=== PATIENT | female | born 1945 | race Caucasian/White ===

== ENCOUNTER 2023-12-08 10:32 | Emergency (ER) | payer BC, MEDICAID ==
[~2023-12-08] VITALS: Ht 152.4 cm; Wt 48.0 kg
[2023-12-08 10:33] VITALS: O2SAT 100
[2023-12-08] MEDS: METOCLOPRAMIDE HCL 10MG/2ML VIAL IV ONE (12:00)
[2023-12-08] MEDS: SODIUM CHLORIDE 0.9% 1,000 ML IV ONE (12:00)
[2023-12-08 13:40] LABS: BASOPHILS % 0.8 % (0.0-2.0); EOSINOPHILS % 0.3 % (0.0-5.0); HEMATOCRIT. 27.5 % (36.0-48.0); HEMOGLOBIN. 8.3 g/dL (12.0-16.0); LYMPHOCYTES % 11.9 % (20.0-50.0); MEAN CORPUSCULAR HEMOGLOBIN 21.4 pg (28.0-32.0); MEAN CORPUSCULAR HGB CONC 30.3 g/dL (31.0-37.0); MEAN CORPUSCULAR VOLUME 70.6 fL (81.0-99.0); MEAN PLATELET VOLUME 8.2 fl (7.4-10.4); MONOCYTES % 6.5 % (2.0-8.0); NEUTROPHILS % 80.5 % (40.0-76.0); PLATELET 339 x1000/uL (130-400); RED BLOOD CELL COUNT 3.89 mill/uL (4.2-5.4); RED CELL DISTRIBUTION WIDTH 29.5 % (11.6-14.6); WHITE BLOOD COUNT 8.5 x1000/uL (4.5-11.0)
[2023-12-08 13:43] LABS: ADD RBC MORPHOLOGY YES; CHLORIDE 107 mEq/L (98-107); DIFFERENTIAL COMMENT 1; POTASSIUM 4.1 mEq/L (3.5-5.1); SODIUM 141 mEq/L (136-145)
[2023-12-08 13:44] LABS: CARBON DIOXIDE 28 mEq/L (21-32)
[2023-12-08 13:45] LABS: CALCIUM 8.9 mg/dL (8.7-10.4)
[2023-12-08] MEDS: GLUCAGON,HUMAN RECOMBINANT 1MG/VIAL IV ONE (13:48)
[2023-12-08 13:50] LABS: CREATININE 0.5 mg/dL (0.6-1.0); GLUCOSE 198 mg/dL (70-105); UREA NITROGEN BLOOD 8 mg/dL (9-23)
[2023-12-08 14:45] VITALS: BP 147/55; PULSE 85; RESP 16; TEMP 36.66960; O2SAT 100
[2023-12-08 14:57] LABS: ANISOCYTOSIS 4+; MICROCYTOSIS 2+; PLATELET ESTIMATE NORMAL
[2023-12-08 14:58] LABS: HYPOCHROMASIA 1+
== END 2023-12-08 17:40 | disposition home or self-care (01) ==
LOC: ER 10:32
DX: T18.128A Food in esophagus causing other injury, initial encounter (principal); D64.9 Anemia, unspecified; E11.9 Type 2 diabetes mellitus without complications; I10 Essential (primary) hypertension; Z86.73 Personal history of transient ischemic attack (TIA), and cerebral infarction without residual deficits
CPT/HCPCS: 99285; 96374; 70490; 96361; 80048; 85025; 36415; J2765; J7030